=== PATIENT | female | born 1950 | race Caucasian/White ===

== ENCOUNTER 2018-11-14 09:22 | Inpatient (IN) | payer MEDICARE, BC ==
--- NOTE | 2018-11-06 12:42 | HP ---
HISTORY AND PHYSICAL: DATE OF OFFICE VISIT: 11/02/18 DATE OF SURGERY: 11/14/18 ATTENDING SURGEON: Karyn Harrell MD * (DICTATED BY DANDRE DEAN) PROCEDURE: Left total knee arthroplasty. CHIEF COMPLAINT: Left knee pain. HISTORY OF PRESENT ILLNESS: Ms. Clemens is a 67-year-old female with continued complaints of left knee pain. She has failed conservative treatment and elected to proceed with a left total knee arthroplasty. PAST MEDICAL HISTORY: Hypertension, diabetes, COPD, depression, hyperlipidemia , GERD, Richards esophagus, and history of breast cancer. PAST SURGICAL HISTORY: Lumpectomy, hysterectomy, appendectomy. CURRENT MEDICATIONS: 1. Tylenol as needed. 2. Motrin as needed. 3. Albuterol sulfate. 4. Metoprolol 50 mg daily. 5. Aspirin 81 mg. 6. Losartan potassium 50 mg daily. 7. Amlodipine 5 mg daily. 8. Mirapex 0.125 mg 1 to 2 tabs q.h.s. as needed. 9. Metformin 500 mg 2 tabs twice a day. 10. Wellbutrin 100 mg daily. 11. Pantoprazole 40 mg twice a day. 12. Citalopram 40 mg daily. 13. Glipizide 5 mg twice a day. 14. Klor-Con 10 mEq daily. 15. CoQ10 daily. 16. Pravastatin sodium 20 mg q.h.s. 17. Vitamin D3. 18. Vitamin B12. ALLERGIES: To ZOLOFT, CRESTOR, VYTORIN, and EFFEXOR. FAMILY HISTORY: Diabetes, cancer, coronary artery disease, and stroke. SOCIAL HISTORY: She is a 67-year-old female. She lives alone. She smokes about 4 cigarettes a day. Denies use of drugs or alcohol. REVIEW OF SYSTEMS: A complete 14-point review of systems was reviewed. The patient is positive for COPD, GERD, and diabetes. She denies history of DVT, PE , hepatitis, HIV, or anesthesia problems. PHYSICAL EXAMINATION GENERAL: She is well developed, well nourished, in no acute distress. VITAL SIGNS: She stands 64 inches tall, weighs 202 pounds. Blood pressure is 148/65, heart rate 84. HEENT: Normocephalic, atraumatic. NECK: Supple. No palpable lymph nodes. PULMONARY: The lungs are clear to auscultation bilaterally. CARDIO: Regular rate and rhythm. Strong S1, S2. ABDOMEN: Soft, nontender, nondistended. NEUROLOGICAL: She is alert and oriented x3. MUSCULOSKELETAL: Left lower extremity: The skin is intact. There are no open wounds or abrasions. There is a moderate joint effusion. Some tenderness along the medial joint line. There is a varus deformity of the knee. Range of motion is 10 to 120 degrees of flexion. She has a 2+ dorsalis pedis pulse, intact sensation. Her lower extremity muscle group strengths are intact at 5/5. ASSESSMENT AND PLAN: Ms. Clemens is a 67-year-old female with end-stage osteoarthritis of the left knee. She has failed conservative treatment and elected to proceed with a left total knee arthroplasty. The surgery is scheduled for 11/14/[address] Harrell discussed the risks and benefits of the surgery at today's visit and all of her questions were answered. She will follow up with Dr. Harrell 2 weeks after the surgery. DANDRE DEAN [id number]/[facility] #: [id number] GRAY
[~2018-11-14 09:22] MED LIST: Buffered Lidocaine 1% SYRIN* 1 ML/SYRINGE INTRADERM ONE; Dexamethasone IV* 4 MG/ML 1 ML (4 MG) ONE; Lactated Ringers 1000 ML Bag* 1,000 ML IV SCH; Lidocaine 2% PF * 5 ML VIAL ONE; Midazolam* 1 MG/ML 2 ML VIAL (2 MG) ONE; Propofol* 10 MG/ML 20 ML BTL ONE; ROPIVACAINE 5 MG/ML 30 ML BTL (0.5%) ONE; Rocuronium* 10 MG/ML VIAL ONE; Tranexamic Acid 1,000 MG in NS 0.9% 50 ML* (outpatient use) IV SCH; fentaNYL* 50 MCG/ML 2 ML VIAL (100 MCG VIAL) ONE
--- OUTSIDE RECORDS SUMMARY | 2018-11-14 09:28 | XMS REPORT | Continuity of Care Document ---
:1950 External Reference #:[id number] Author Name Valentine Begum Care Team Providers Name Role Phone Maricruz Burt FNP Primary Care Physician Unavailable Payers Type Date Identification Numbers Payment Provider Subscriber Policy Number: [id number] Medicare Rachel Clemens PayID: [id number] [address] [place] [address] Policy Number: [id number] [facility] Rachel Clemens PayID: [id number] [address] [place] [address] Expires: 2018 Policy Number: [id number] Medicare Rachel Clemens PayID: [id number] [address] [facility] [place] [address] Advance Directives Description No Information Available Problems Date Description Provider Status Onset: 10/01/2018 Localized, primary osteoarthritis Karyn Harrell M.D. 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 [employer] Tobacco Use Start: Unknown Light tobacco smoker (10 or fewer cigarettes/day) Tobacco Use Start: Unknown currently smokes 1/2 Pack Daily Smoking Status Reviewed: 11/02/18 currently smokes 1/2 Pack Daily ETOH Use Occasionally consumes alcohol Recreational Drug Use Denies Drug Use Tobacco Use Start: Unknown Light tobacco smoker (10 or fewer cigarettes/day) Exercise Type/Frequency Exercises sporadically Allergies, Adverse Reactions, Alerts Date Description Reaction Status Severity Comments 05/22/2018 Zoloft Active 05/22/2018 Rosuvastatin Calcium Active 05/22/2018 Vytorin Active 05/22/2018 Effexor Tachycardia Active Medications Medication Date Status Form Strength Qnty SIG Indications Ordering Provider Oxycodone-Acet 10/01/ Active Tablets 5-325mg 60tabs 1-2 tabs M25.562 Karyn aminophen 2017 by mouth Julio Cesar, every 12 M.D. hours as needed for pain Tylenol / Active Capsules 325mg 2 tablets Unknown 0000 every 4 hours as needed for pain Motrin Ib / Active Tablets 200mg 1-2 twice Unknown 0000 a day as needed Albuterol / Active Nebulizer (2.5mg/3ML 1 vial via Unknown Sulfate 0000 ) 0.083% nebulizer 4 times daily as needed Metoprolol / Active Tablets ER 50mg 1 by mouth Unknown Succinate ER 0000 24HR every day Aspirin Adult / Active Tablets DR 81mg 1 by mouth Unknown Low Dose 0000 every day Losartan / Active Tablets 50mg 1 by mouth Unknown Potassium 0000 every day Amlodipine / Active Tablets 5mg 1 by mouth Unknown Besylate 0000 every day Mirapex / Active Tablets 0.125mg take one Unknown 0000 or two tablet by mouth at bedtime as needed for restless legs Metformin HCL / Active Tablets 500mg 2 by mouth Unknown 0000 twice a day Wellbutrin SR / Active Tablets ER 100mg 1 by mouth Unknown 0000 12HR every morning for 1 week, then 1 in in the morning, 1 at noon (bid) Pantoprazole / Active Solution 40mg 1 by mouth Unknown Sodium 0000 Rec twice every day Citalopram / Active Tablets 40mg 1 by mouth Unknown Hydrobromide 0000 every day Glipizide XL / Active Tablets ER 5mg 1 tab by Javed, 0000 24HR mouth Maricruz twice Mary daily MICHAEL Klor-Con M10 / Active Tablets ER 10Meq 1 tab by Javed, 0000 mouth Maricruz daily MICHAEL Hernandez Coq10 / Active Capsules 200mg 1 by mouth Unknown 0000 every day Pravastatin 00/00/ Active Tablets 20mg 1 tablet Unknown Sodium 0000 by mouth once daily at bedtime Vitamin D3 / Active Capsules 2000Unit 1 by mouth Unknown Super Strength 0000 every day Potassium / Hx Tablets ER 10Meq 1 by mouth Unknown Chloride Helene 0000 - every day ER 2017 Atorvastatin / Hx Tablets 20mg take 1 Unknown Calcium 0000 - tablet at 05/06/ bedtime 2018 Glucotrol XL / Hx Tablets ER 10mg take two Unknown 0000 - 24HR tablets by 2018 every day in the morning Fish Oil / Hx Capsules DR 1000mg 1 by mouth Unknown 0000 - twice a 2017 Gemfibrozil / Hx Tablets 600mg 1 by mouth Unknown 0000 - twice a 2017 Medications Administered in Office Medication Date Status Form Strength Qnty SIG Indications Ordering Provider Celestone 3 mg Administered Injection Julio Cesar M and 3mg 018 MD Jose Celestone 3 mg Administered Injection Julio Cesar M and 3mg 018 MD Jose Celestone 3 mg Administered Injection Julio Cesar M and 3mg 018 MD Jose Immunizations Description No Information Available Vital Signs Date Vital Result Comment 11/02/2018 1:12pm Height 64 inches 5'4" Weight 200.00 lb Heart Rate 84 /min BP Systolic 148 mmHg BP Diastolic 65 mmHg Respiratory Rate 17 /min Pain Level 5 BMI (Body Mass Index) 34.3 kg/m2 10/01/2018 3:40pm Height 64 inches 5'4" Weight 204.00 lb Heart Rate 96 /min BP Systolic 146 mmHg BP Diastolic 74 mmHg BMI (Body Mass Index) 35.0 kg/m2 09/20/2018 10:04am Height 64 inches 5'4" Weight 190.00 lb BP Systolic Sitting 126 mmHg BP Diastolic Sitting 68 mmHg Respiratory Rate 16 /min Pain Level 6 BMI (Body Mass Index) 32.6 kg/m2 07/04/2018 10:00am Height 64 inches 5'4" Weight 190.00 lb BP Systolic Sitting 148 mmHg BP Diastolic Sitting 82 mmHg Respiratory Rate 16 /min Pain Level 8 BMI (Body Mass Index) 32.6 kg/m2 05/22/2018 2:06pm Height 64 inches 5'4" Weight 190.00 lb Heart Rate 90 /min BP Systolic Sitting 132 mmHg BP Diastolic Sitting 80 mmHg Respiratory Rate 20 /min Pain Level 7 BMI (Body Mass Index) 32.6 kg/m2 Results Description No Information Available Procedures Date Code Description Status 07/04/2018 15425 Rad Exam; Both Knees, Standing Ap Completed 07/04/2018 Inject/Drain Joint/Bursa Major W/O US Completed 05/22/2018 Inject/Drain Joint/Bursa Major W/O US Completed Encounters Type Date Location Provider Dx Diagnosis Office Visit 10/01/2018 Orthopedic Karyn Harrell, M25.562 Pain in left knee 3:00[facility] M25.462 Effusion, left knee M17.12 Unilateral primary osteoarthritis, left knee Office Visit 09/20/2018 10:00a Randall Valle M17.0 Bilateral [facility] MD osteoarthritis of [facility] [place] knee Office Visit 07/04/2018 9:45a Randall Valle M17.0 [facility] MD osteoarthritis of [place] knee M17.12 Unilateral primary osteoarthritis, left knee Office Visit 05/22/2018 Randall Valle M17.12 Unilateral primary 2:00p [facility] MD osteoarthritis, left [place] knee Plan of Treatment Future Appointment(s):11/26/2018 2:45 pm - Karyn Harrell M.D[facility] at [facility]11/14/2018 11:00 am - DANDRE Nova [facility]11/14/2018 11:00 am - Karyn Harrell M.D. at [facility]11/02/2018 - Karyn Harrell M.D.M25.562 Pain in left kneeFollow up:Follow up: 2 weeks after ljqgrsdZ43.462 Effusion, left kneeM17.12 Unilateral primary osteoarthritis, left knee
[2018-11-14] MEDS ORDERED: ceFAZolin 2 GM PREMIX in ORs 2 GM/50 ML BAG IVPB ONE (09:44)
[2018-11-14] MEDS ORDERED: ROPIVACAINE 5 MG/ML 30 ML BTL (0.5%) ONE (10:21)
[2018-11-14] MEDS ORDERED: KETAMINE HCL* 50 MG/ML 10 ML VIAL ONE (11:24)
[2018-11-14] MEDS ORDERED: Naloxone* 0.4 MG/ML 1 ML VIAL IV PRN (12:17)
[2018-11-14] MEDS ORDERED: Acetaminophen IV 1GM/100ML * 1,000 MG/100 ML VIAL IVPB ONE (12:17)
[2018-11-14] MEDS ORDERED: DiMENhydriNATE IV* 50 MG/ML VIAL IV PUSH PRN (12:17)
[2018-11-14] MEDS ORDERED: Metoclopramide IV* 5 MG/ML 2 ML VIAL ONE (13:01)
[2018-11-14] MEDS ORDERED: Ketorolac INJ* 30 MG/ML 1 ML VIAL ONE (13:01)
[2018-11-14] MEDS ORDERED: Glycopyrrolate IV* 0.2 MG/ML 1 ML VIAL ONE (13:01)
[2018-11-14] MEDS ORDERED: Neostigmine Methylsulfate* 1 MG/ML 10 ML VIAL (1 mg/ml) ONE (13:01)
[2018-11-14] MEDS ORDERED: Ondansetron INJ* 2 MG/ML VIAL ONE (13:01)
[2018-11-14] MEDS ORDERED: Magnesium Hydroxide LIQ* 30 ML UDC PO PRN (13:26)
[2018-11-14] MEDS ORDERED: Ondansetron TAB* 4 MG PO PRN (13:26)
[2018-11-14] MEDS ORDERED: diPHENhydraMINE IV* 50 MG/ML 1 ml VIAL (BENADRYL) IV PRN (13:26)
[2018-11-14] MEDS ORDERED: oxyCODONE/Acetamin 5/325 MG* TAB PO PRN (13:26)
[2018-11-14] MEDS ORDERED: Polyethylene Glycol 3350* 17 GM PACKET PO PRN (13:26)
[2018-11-14] MEDS ORDERED: Bisacodyl SUPP* 10 MG SUPP PR PRN (13:26)
[2018-11-14] MEDS ORDERED: Cyclobenzaprine TAB* 10 MG PO PRN (13:26)
[2018-11-14] MEDS ORDERED: Ondansetron INJ* 2 MG/ML VIAL IV PRN (13:26)
[2018-11-14] MEDS ORDERED: Morphine VIAL* 4 MG/ML VIAL (1 ml vial) IV PRN (13:26)
[2018-11-14] MEDS ORDERED: Albuterol 0.5% CONC NEB.SOL* 5 MG/ML 20 ml BOT INH PRN (13:32)
[2018-11-14] MEDS ORDERED: Levalbuterol 0.63MG/3ML NEB* UNIT OF USE INH ONE (13:39)
[2018-11-14] MEDS ORDERED: EPINEPHrine SYR 0.1MG/ML* SYRINGE ONE (13:59)
[2018-11-14] MEDS ORDERED: Albuterol/Ipratropium NEB.SOL* Albuterol 2.5 MG/Ipratropium 0.5 MG 3 ML INH ONE (14:00)
[2018-11-14] MEDS ORDERED: Acetaminophen TAB* 325 MG PO SCH (14:00)
[2018-11-14] MEDS ORDERED: Acetaminophen IV 1GM/100ML * 100 ML ONE (14:24)
[2018-11-14] MEDS ORDERED: Dextrose 50% Syringe 50 ML* 25 GM/50 ML SYRINGE IV PUSH PRN (14:43)
[2018-11-14] MEDS: HYDROmorphone INJ1* 1 MG/ML SYRINGE IV PRN ×3 (15:02→16:18)
[2018-11-14] MEDS ORDERED: HYDROmorphone INJ1* 1 MG/ML SYRINGE ONE (15:02)
[2018-11-14] MEDS: Lactated Ringers 1000 ML Bag* 1,000 ML IV SCH (17:10)
[2018-11-14] MEDS ORDERED: oxyCODONE/Acetamin 5/325 MG* TAB ONE (17:32)
[2018-11-14] MEDS: oxyCODONE/Acetamin 5/325 MG* TAB PO PRN ×2 (17:33→21:32)
[2018-11-14] MEDS: Insulin LISPRO* 1 UNITS UNIT SUBCUT SCH (17:46)
[2018-11-14] MEDS ORDERED: Warfarin TAB(*) 6 MG PO ONE (18:00)
--- NOTE | 2018-11-14 18:42 | CONS ---
CC: Mary Burt NP; Dr. Harrell; Dr. Salinas * CONSULTATION NOTE: DATE OF CONSULT: 11/14/18 PRIMARY CARE PROVIDER: Mary Burt NP REQUESTING PHYSICIAN IN CONSULT: Dr. Karyn Harrell. MY ATTENDING PHYSICIAN WHILE IN THE HOSPITAL: Dr. Mahi Freeman (report dictated by Brien Tracy NP). REASON FOR MEDICAL CONSULTATION: Evaluation and medical management of comorbid medical conditions. HISTORY OF PRESENT ILLNESS: Ms. Clemens is a 67-year-old female patient who carries a history of hypertension, diabetes, COPD, depression, hyperlipidemia, GERD, Richards's esophagus, breast cancer, history of migraines and arthritis, who presented originally to Dr. Harrell's service in the outpatient setting with complaints of left knee pain. She had failed conservative therapy and it was felt that she would benefit from a total knee replacement which she underwent today. She carries a significant past medical history and we were asked to evaluate in consult. She was evaluated in the PACU. She is quite drowsy, but she will awaken. She says she is not having any chest pain. She denies any shortness of breath. She says she does have some pain in her left knee. She states she feels very tired. She denies having any lightheadedness and denies having any recent cough or fevers. She states she does not feel nauseated. She states she feels thirsty. Because of her medical complexity, we were asked to evaluate in consult. PAST MEDICAL HISTORY: Significant for: 1. Hypertension. 2. Diabetes. 3. COPD. 4. Depression. 5. Hyperlipidemia. 6. GERD. 7. Richards's esophagus. 8. Breast cancer. 9. Migraines. 10. Arthritis. PAST SURGICAL HISTORY: 1. She has had a hysterectomy 2. Appendectomy. 3. Lumpectomy. 4. She is status post left total knee arthroplasty done today. HOME MEDICATIONS: Include: 1. Glipizide 5 mg p.o. b.i.d. 2. Wellbutrin 300 mg 1 tablet p.o. q.a.m. 3. Co-enzyme Q10 of 200 mg p.o. at bedtime. 4. Pravachol 20 mg at bedtime. 5. Mirapex 0.125 mg p.o. at bedtime. 6. Potassium chloride 1 tablet p.o. daily. 7. Protonix 40 mg p.o. b.i.d. 8. Toprol-XL 1 tablet p.o. in the morning. 9. Metformin 500 mg p.o. b.i.d. 10. Cozaar 1 tablet at bedtime. 11. Motrin 1 to 2 tablets p.o. b.i.d. as needed. 12. Celexa 40 mg daily. 13. Vitamin D3 of 2000 units p.o. at bedtime. 14. Aspirin 81 mg daily. 15. Amlodipine 5 mg daily. 16. Albuterol 1 neb inhaled 4 times a day as needed. 17. Tylenol 2 tablets every 4 hours as needed. ALLERGIES TO MEDICATIONS: Include EFFEXOR, STATIN, ZOLOFT. FAMILY HISTORY: Both her parents had history of GA. SOCIAL HISTORY: She is a half a pack a day smoker. She rarely drinks alcohol. Surrogate decision maker is her daughter, . REVIEW OF SYSTEMS: There is no documented fever. She denied having any significant weight change. There is no double vision. She denies having any ear discharge. There was no rhinorrhea. There was no sore throat. No thyroid enlargement. She denies having any chest pain. There was no orthopnea. There was no nocturnal dyspnea. She denies having any abdominal pain. There was no nausea, no vomiting. No dysuria, no frequency, no seizure. There was no loss of consciousness. No pruritus. Review of 14 systems was completed, all others negative. PHYSICAL EXAMINATION: General: At this time, Ms. Clemens is a 67-year-old female patient. She is morbidly obese. She is sitting in the PACU bed. She does not appear to be in any acute distress. She is rather drowsy. Vital Signs : Blood pressure 132/93, pulse 88, respirations were 12, O2 sat 93% on 8 L, temperature 97.2. HEENT: Head atraumatic, normocephalic. Eyes: EOMs intact. Sclerae anicteric. Pupils reactive to light. Neck: Supple. Throat: Oral mucosa appears to be dry. No oropharyngeal erythema. Lungs: Clear to auscultation bilaterally. There were no wheezes, rales or rhonchi heard. She had diminished breath sounds at the bases. Equal diaphragmatic expansion. Heart: Sounds S1, S2. Regular rate and rhythm. No murmurs, rubs or gallops. Abdomen: Soft, flat, nontender. Bowel sounds hypoactive. Extremities: Pulses 2+ throughout. Distal CSM checks are intact in the left lower extremity. She is moving the upper extremities with 5/5 strength. She has limited range of motion in the left lower extremity, this is the operative leg. She has 5/5 strength in the right lower extremity. Neurologic: She is quite drowsy, but she will awake and she knows she is in the hospital. She knows her name. She knows she had surgery today and she knows the month. Her speech again is difficult to interpret because she is again very drowsy during the exam , but it does sound to be clear. She had a low tone. She had no facial drooping. Again, EOMs were intact. Pupils reactive to light. No gross focal deficits were noted. Skin: Intact with the exception she has an incision to the left knee, which is covered with an Vikas dressing, clean, dry and intact. LABORATORY DATA/DIAGNOSTIC STUDIES: Preop labs: WBC 7.9, RBC of 4.41, hemoglobin 12.9, hematocrit 39, platelet count 321,000. INR 0.97. PTT 30.8. Her sodium was 135, potassium 4.4, chloride 101, bicarb 25, BUN 15, creatinine 0.6, A1c was 7.9, total bili 0.3. She had a preop urine which was obtained, was negative. She had a preoperative EKG, showed a normal sinus rhythm, rate of 74, no ST elevation or T-wave inversions noted. There was a chest x-ray obtained today, which revealed findings suggestive of COPD, no evidence of acute findings. Old medical records reviewed. ASSESSMENT AND PLAN: Ms. Clemens is a 67-year-old female patient with a complex medical history coming into the surgical services today for an elective total knee replacement. We were asked to evaluate in consult. My recommendations at this point are: 1. Status post left total knee replacement. I will defer the management to Dr. Harrell and her team, but I would recommend getting her back on her aspirin when it is stable per orthopedic services. 2. Chronic obstructive pulmonary disease. Continue with aggressive pulmonary toileting and p.r.n. nebs. We will need to be on the watch out for bronchospasm. She appeared to be clear. She did require Xopenex and DuoNeb immediately in the PACU, but she seems to be improving. We will continue to monitor. 3. Hypertension. Continue meds as prescribed with the exception I held the Cozaar for tonight. We can restart it tomorrow, but I discontinued it. We will just need to evaluate her blood pressure 4. Diabetes. I put her on a lispro sliding scale. 5. Depression. Continue with supportive care. 6. Hyperlipidemia. Continue Pravachol. 7. History of Richards's esophagus and history of gastroesophageal reflux disease. Continue PPI therapy. 8. History of breast cancer. Follow up with primary care physician. 9. Migraines. Not an active issue currently. We will continue to monitor. 10. Arthritis. Continue with p.r.n. pain control and continue to follow with the PCP. Appears to be stable. 11. DVT prophylaxis. Defer to the primary team. 12. Code status is full code. 13. Fluids, electrolytes and nutrition. I would recommend a clear liquid diet. TIME SPENT: Time spent on the consult was 60 minutes, greater than half of the time was spent [id number] with the patient obtaining my history and physical, other half of the time was spent going over the plan of care with the patient and implementing plan of care. I did discuss the plan of care with my attending, Dr. Freeman, she is in agreement. BRIEN TRACY NP [id number]/[facility] #: [id number] GRAY
[2018-11-14] MEDS: ceFAZolin 1 GM ADVAN(*) 1 GM in NS 0.9% 50 ML* 50 ML IVPB SCH (19:10)
[2018-11-14] MEDS: Docusate CAP* 100 MG PO SCH (20:23)
[2018-11-14] MEDS: Pantoprazole TAB * 40 MG TAB PO SCH (20:23)
[2018-11-14] MEDS: traMADol TAB* 50 MG PO PRN (20:23)
[2018-11-14] MEDS: Magnesium Hydroxide LIQ* 30 ML UDC PO SCH (20:24)
[2018-11-14] MEDS: Pramipexole TAB* 0.125 MG PO SCH (20:24)
[2018-11-14] MEDS: CMCS:Pravastatin (NF) 20 MG TAB PO SCH (20:24)
[2018-11-14] MEDS ORDERED: metFORMIN* 500 MG TAB PO SCH (21:00)
[2018-11-14] MEDS ORDERED: LOSARTAN POTASSIUM PO SCH (21:00)
[2018-11-14] MEDS ORDERED: Pravastatin (NF) 20 MG TAB PO SCH ×2 (21:00)
[2018-11-14] MEDS ORDERED: glipiZIDE TAB.XL* 5 MG PO SCH (21:00)
[2018-11-14] MEDS: Acetaminophen TAB* 325 MG PO SCH (21:03)
--- NOTE | 2018-11-14 21:37 | OP ---
DATE OF OPERATION: 11/14/18 - ROOM #347 DATE OF : 52 SURGEON: Karyn Harrell MD WET FINISHER WOOL: DANDRE Blair. Ms. Villa did help throughout the procedure with preparation of the leg, wound retraction, manipulation of the knee, and wound closure. ANESTHESIOLOGIST: Dr. Griffiths. ANESTHESIA: General. PRE-OP DIAGNOSIS: Severe end-stage degenerative osteoarthritis of the left knee joint. POST-OP DIAGNOSIS: Severe end-stage degenerative osteoarthritis of the left knee joint. OPERATIVE PROCEDURE: Left total knee arthroplasty. TOURNIQUET TIME: 41 minutes. COMPLICATIONS: None. ESTIMATED BLOOD LOSS: 150 cc. SPECIMENS: Bone and cartilage from the left knee joint sent to Pathology. HARDWARE USED: This is cemented Fr[employer] total knee arthroplasty hardware. Two packages of Simplex bone cement were used. For the femur, a left 5 Narrow Oxinium Legion posterior stabilized femoral component. For the tibia, a size 3 left tibial baseplate Wilma II. For the insert, a 9-mm posterior stabilized articular insert size 3/4 and for the patella, a 32 mm 3-peg all poly patella with 7.5 thickness. BRIEF HISTORY/INDICATIONS: Ms. Clemens has suffered for years with left knee pain. Radiographs showed [id number] arthritis. She failed conservative treatment with anti-inflammatories, pain medications, physical therapy, and intraarticular injections. Due to continued pain and decreased quality of life , she elected to undergo left total knee arthroplasty. Informed consent was obtained from the patient. She understood the risks of the surgery included but were not limited to bleeding, infection, damage to nearby structures, continued pain, need for further surgery, intraoperative fracture, nerve palsy, hardware failure or loosening, knee stiffness, loss of motion, stroke, heart attack, blood clot, and . She wished to proceed. INTRAOPERATIVE FINDINGS: Intraoperatively, the patient was noted to have severe end-stage arthritis with complete loss of cartilage in the medial and patellofemoral compartments. She had extensive osteophyte formation. DESCRIPTION OF PROCEDURE: Ms. Clemens was identified in the preanesthesia unit. Her left lower extremity was marked as the correct operative site. Informed consent was signed and placed in the chart. The patient was taken to the operating room and placed under anesthesia without difficulty. A Mckeon catheter was placed. Tourniquet was placed on the left thigh. Left lower extremity was prepped and draped in the usual sterile fashion. Preop time-out was made to correctly identify the patient's side and site. Appropriate perioperative antibiotics were given within 1 hour of incision. Tourniquet was inflated. A midline incision was made with a 10 blade and carried down to the extensor mechanism. New 10 blade was used to make a standard medial parapatellar arthrotomy. Electrocautery was used to subperiosteally elevate soft tissue off the superomedial tibia to the midsagittal plane. The knee was flexed up. The anterior horn of the lateral meniscus and the ACL were sharply released. A drill was used to enter the distal femur. Intramedullary distal femoral cutting guide was pinned on the distal femur. Oscillating saw was used to make the distal femoral cut. The external rotation guide was pinned on the distal femur. Distal femur was sized to a size 5. Size 5 multi-cutting jig was pinned on the distal femur. Oscillating saw was used to make the appropriate 4 chamfer cuts. The PCL was completely released. Extramedullary tibial cutting guide was pinned on the proximal tibia. Oscillating saw was used to make the proximal tibial cut perpendicular to the mechanical axis of the tibia. The bone was carefully removed. The knee was brought out into full extension. Spacer block had excellent fit with the knee in full extension. Medial and lateral ligaments were well balanced. Flexion and extension gaps were well balanced. The knee was flexed up. Lamina sleeve fixer was placed both medially and laterally. Any remaining meniscus was carefully removed using electrocautery. Curved osteotome was used to remove any osteophytes. Tibial tray and drop jammie were placed and once again confirmed a satisfactory tibial cut. A left size 5 Narrow femoral trial was impacted on to the distal femur and had excellent fit and stability. The box for the posterior stabilized implant was prepared using a reamer and box cut osteotome. Size 3 tibial tray trial with a 9 mm insert trial was placed and the knee was taken through a range of motion. The knee had full extension to 130 degrees of flexion. There was satisfactory patellofemoral tracking. The patella was everted. A 7 mm of patellar bone and cartilage was carefully removed using an oscillating saw. Patella was sized to a size 32. Three peg holes were drilled through the size 32 guide. The 32 trial patella with 7.5 thickness was placed and the knee was taken through a range of motion. There was satisfactory patellofemoral tracking. All trials were carefully removed. Tibia was subluxed anteriorly and sized to a size 3. Proximal tibia was prepared using a size 3 keel punch. All bony cut surfaces were copiously irrigated and dried. Final implants were cemented into place starting with the tibia, followed by the femur, and last the patella. A 9 mm insert trial was placed and the knee was brought out into full extension. Tourniquet was turned down at 41 minutes. Electro-cautery was used to obtain meticulous hemostasis. The knee was copiously irrigated with sterile saline. Once the cement had fully cured, the insert trial was removed. Any extra cement was removed from around the capsule and hardware. Final insert chosen was a 9 mm posterior stabilized articular insert size 3/4. This was locked in position on the tibial tray. Stability of the insert was checked and rechecked and noted to be stable. The knee was copiously irrigated with sterile saline. The extensor mechanism was closed using interrupted #1 Vicryls. The rest of the incision was closed in a layered fashion using 0 and 2-0 Vicryls. Skin was closed using running 3- 0 nylon suture. Sterile Xeroform, 4x4s, and Webril were used to cover the incision. Vikas wrap and cold pack were placed over this. The patient's anesthesia was reversed without difficulty. She was taken to the PACU in stable condition. Intended weightbearing will be weightbearing as tolerated. Intended DVT prophylaxis will be Eliquis. [id number]/[facility] #: [id number] GRAY
[2018-11-15] MEDS: oxyCODONE/Acetamin 5/325 MG* TAB PO PRN ×4 (01:43→21:11)
[2018-11-15] MEDS: ceFAZolin 1 GM ADVAN(*) 1 GM in NS 0.9% 50 ML* 50 ML IVPB SCH ×2 (03:25→12:16)
[2018-11-15] MEDS: Lactated Ringers 1000 ML Bag* 1,000 ML IV SCH (03:25)
[2018-11-15] MEDS: Acetaminophen TAB* 325 MG PO SCH ×3 (05:21→21:57)
[2018-11-15] MEDS: traMADol TAB* 50 MG PO PRN (05:50)
[2018-11-15 05:59] LABS: Hematocrit 33 % (35-47); Hemoglobin 11.1 g/dl (12.0-16.0); Mean Platelet Volume 8.5 fL (7.4-10.4); Platelet Count 255 10^3/ul (150-450)
[2018-11-15 06:09] LABS: INR 0.99 (0.77-1.02)
[2018-11-15 06:20] LABS: BUN/Creatinine Ratio 19.6 (8-20); Calcium 8.7 mg/dL (8.6-10.3); EGFR African American 73.9 (>60); EGFR Non-African American 61.1 (>60); Potassium 4.5 mmol/L (3.5-5.0)
[2018-11-15] MEDS: Albuterol 2.5 MG/3 ML NEB.SOL* (0.083%) INH PRN ×2 (08:00→14:40)
[2018-11-15] MEDS: oxyCODONE TAB* 5 MG TAB PO PRN ×2 (08:16→14:39)
[2018-11-15] MEDS: buPROPion SR TAB.SR* 100 MG PO SCH (08:17)
[2018-11-15] MEDS: Metoprolol Succinate XL TAB* 50 MG PO SCH (08:17)
[2018-11-15] MEDS: Magnesium Hydroxide LIQ* 30 ML UDC PO SCH ×2 (08:17→21:11)
[2018-11-15] MEDS: Citalopram TAB* 40 MG PO SCH (08:18)
[2018-11-15] MEDS: Docusate CAP* 100 MG PO SCH ×2 (08:18→21:10)
[2018-11-15] MEDS: amLODIPine TAB* 5 MG PO SCH (08:18)
[2018-11-15] MEDS: Potassium Chlor TAB* 10 MEQ TAB.ER PO SCH (08:18)
[2018-11-15] MEDS: Pantoprazole TAB * 40 MG TAB PO SCH ×2 (08:18→21:11)
[2018-11-15] MEDS: Insulin LISPRO* 1 UNITS UNIT SUBCUT SCH ×3 (08:20→18:18)
[2018-11-15] MEDS ORDERED: Metoprolol Succinate XL TAB* 50 MG PO SCH (09:00)
[2018-11-15] MEDS ORDERED: amLODIPine TAB* 5 MG PO SCH (09:00)
[2018-11-15] MEDS ORDERED: diPHENhydraMINE PO* 25 MG ONE (09:24)
[2018-11-15] MEDS ORDERED: diPHENhydraMINE PO* 25 MG PO PRN (09:26)
[2018-11-15] MEDS: Apixaban* 2.5 MG TAB PO SCH ×2 (09:26→21:10)
--- NOTE | 2018-11-15 09:51 | PN ---
Progress Note - Progress Note Date of Service: 11/15/18 SOAP: Subjective: [] Patient was seen and examined at bedside. She feels well without CP, SOB, dizziness, nausea. Knee pain is rated 6/10 just after physical therapy, improving with rest. No history of DVT or PE, does have a history of COPD without oxygen use at home. Objective: [] General: Well appearing, NAD LLE: Left knee dressing CDi, cryo cuff in use, thigh is soft, df/pf intact, sensation intact to light touch distally, DP2+ Calves supple and nontender without erythema, edema or palpable cords Assessment: [] POD 1 SP left total knee arthoplasty Plan: []WBAT PT/OT eliquis 2.5 mg po BID x 30 days Wean from O2 as able Likely DC tomorrow morning Vital Signs Temp 98.7 F 11/15/18 07:27 Pulse 83 11/15/18 08:00 Resp 18 11/15/18 09:26 BP 139/61 11/15/18 07:27 Pulse Ox 94 11/15/18 08:00 Intake & Output 11/14/18 11/15/18 11/15/18 18:59 06:59 18:59 Intake Total 2250 1618 480 Output Total 475 1075 0 Balance 1775 543 480 Weight 201 lb 12.8 oz Intake: IV Fluids 2250 980 LR 2200 980 NS 50ML, Cefazolin 2G 50 IVPB 58 ABX - CEFAZOLIN 58 Oral 580 480 Output: Urine 0 Mckeon 275 1075 Estimated Blood Loss 200 Other: # Bowel Movements 0 Laboratory Last Values Hgb 11.1 g/dl (12.0-16.0) L 11/15/18 05:20 Hct 33 % (35-47) L 11/15/18 05:20 Plt Count 255 10^3/ul (150-450) 11/15/18 05:20 MPV 8.5 fL (7.4-10.4) 11/15/18 05:20 INR (Anticoag Therapy) 0.99 (0.77-1.02) 11/15/18 05:20 Sodium 132 mmol/L (135-145) L 11/15/18 05:20 Potassium 4.5 mmol/L (3.5-5.0) 11/15/18 05:20 Chloride 101 mmol/L (101-111) 11/15/18 05:20 Carbon Dioxide 24 mmol/L (22-32) 11/15/18 05:20 Anion Gap 7 mmol/L (2-11) 11/15/18 05:20 BUN 18 mg/dL (6-24) 11/15/18 05:20 Creatinine 0.92 mg/dL (0.51-0.95) 11/15/18 05:20 Est GFR ( Amer) 73.9 (>60) 11/15/18 05:20 Est GFR (Non-Af Amer) 61.1 (>60) 11/15/18 05:20 BUN/Creatinine Ratio 19.6 (8-20) 11/15/18 05:20 Glucose 203 mg/dL (70-100) H 11/15/18 05:20 POC Glucose (mg/dL) 193 mg/dL (70-100) H 11/15/18 07:24 Calcium 8.7 mg/dL (8.6-10.3) 11/15/18 05:20
[2018-11-15] MEDS ORDERED: Enoxaparin(*) 40 MG/0.4 ML SYR SUBCUT SCH (12:00)
--- NOTE | 2018-11-15 14:15 | PN ---
Subjective Date of Service: 11/15/18 Interval History: Resting in bed on assessment. Reports increase in pain in left knee because she just returned from PT. Otherwise pain is well controlled. It is noted that patient is on supplemental O2 and she reports she does not wear /need supplemental O2 at home. In addition she reports she feels "wheezy". She explains that when she feels wheezy at home she will take her nebulizer for 2 to 3 days and will improve. Denies sob with exertion, rest, or when lying flat. Denies cp, palpitations, nausea, vomiting, diarrhea, fever, chills Objective Active Medications: Acetaminophen (Tylenol Tab*) 975 mg PO Q8HR [facility] Last Admin: 11/15/18 12:44 Dose: Not Given Albuterol (Ventolin 2.5 Mg/3 Ml Neb.Davina*) 2.5 mg INH Q2H PRN PRN Reason: SOB/WHEEZING Last Admin: 11/15/18 08:00 Dose: 2.5 mg Amlodipine Besylate (Norvasc Tab*) 5 mg PO QAM [facility] Last Admin: 11/15/18 08:18 Dose: 5 mg Apixaban (Eliquis*) 2.5 mg PO BID [facility] Last Admin: 11/15/18 09:26 Dose: 2.5 mg Bisacodyl (Dulcolax Supp*) 10 mg NC DAILY PRN PRN Reason: constipation Bupropion HCl (Wellbutrin Sr Tab*) 100 mg PO QAM [facility] Last Admin: 11/15/18 08:17 Dose: 100 mg Citalopram Hydrobromide (Celexa Tab*) 40 mg PO QAM [facility] Last Admin: 11/15/18 08:18 Dose: 40 mg Cyclobenzaprine HCl (Flexeril Tab*) 10 mg PO TID PRN PRN Reason: SPASMS Dextrose (D50w Syringe 50 Ml*) 12.5 gm IV PUSH .FOR FS < 60 - SS PRN PRN Reason: FS < 60 Diphenhydramine HCl (Benadryl Iv*) 12.5 mg IV Q6H PRN PRN Reason: PRURITIS Diphenhydramine HCl (Benadryl Po*) 25 mg PO Q6H PRN PRN Reason: ITCHINESS Docusate Sodium (Colace Cap*) 100 mg PO BID [facility] Last Admin: 11/15/18 08:18 Dose: 100 mg Lactated Ringer's (Lactated Ringers 1000 Ml Bag*) 1,000 mls @ 100 mls/hr IV PER RATE [facility] Last Admin: 11/15/18 03:25 Dose: 100 mls/hr Insulin Human Lispro (Humalog*) 0 units SUBCUT AC [facility]; Protocol Last Admin: 11/15/18 12:16 Dose: 3 units Lactulose (Lactulose*) 30 ml PO Q6H PRN PRN Reason: constipation Magnesium Hydroxide (Milk Of Magnesia Liq*) 30 ml PO BID [facility] Last Admin: 11/15/18 08:17 Dose: 30 ml Magnesium Hydroxide (Milk Of Magnesia Liq*) 30 ml PO Q6H PRN PRN Reason: constipation Metoprolol Succinate (Toprol Xl Tab*) 50 mg PO QAM [facility] Last Admin: 11/15/18 08:17 Dose: 50 mg Morphine Sulfate (Morphine Vial*) 2 mg IV Q2H PRN PRN Reason: PAIN Ondansetron HCl (Zofran Inj*) 4 mg IV Q6H PRN PRN Reason: nausea Ondansetron HCl (Zofran Tab*) 4 mg PO Q6H PRN PRN Reason: NAUSEA Oxycodone HCl (Roxycodone Tab*) 10 mg PO Q4H PRN PRN Reason: SEVERE PAIN Last Admin: 11/15/18 08:16 Dose: 10 mg Oxycodone/Acetaminophen (Percocet 5/325 Tab*) 1 tab PO Q4H PRN PRN Reason: PAIN Oxycodone/Acetaminophen (Percocet 5/325 Tab*) 2 tab PO Q4H PRN PRN Reason: PAIN Last Admin: 11/15/18 10:48 Dose: 2 tab Pantoprazole Sodium (Protonix Tab*) 40 mg PO BID [facility] Last Admin: 11/15/18 08:18 Dose: 40 mg Polyethylene Glycol/Electrolytes (Miralax*) 17 gm PO DAILY PRN PRN Reason: Constipation Potassium Chloride (Klor Con Er Tab*) 10 meq PO QAM [facility] Last Admin: 11/15/18 08:18 Dose: 10 meq Pramipexole Dihydrochloride (Mirapex Tab*) 0.125 mg PO BEDTIME [facility] Last Admin: 11/14/18 20:24 Dose: 0.125 mg Pravastatin Sodium (Pravachol (Nf)) 20 mg PO BEDTIME [facility]; Protocol Last Admin: 11/14/18 20:24 Dose: 20 mg Tramadol HCl (Ultram*) 50 mg PO Q6H PRN PRN Reason: PAIN Last Admin: 11/15/18 05:50 Dose: 50 mg Vital Signs - 8 hr 11/15/18 11/15/18 11/15/18 07:27 07:47 08:00 Temperature 98.7 F Pulse Rate 83 83 Respiratory 16 18 18 Rate Blood Pressure 139/61 (mmHg) O2 Sat by Pulse 90 90 94 Oximetry 11/15/18 11/15/18 11/15/18 08:16 09:26 10:48 Temperature Pulse Rate Respiratory 18 18 18 Rate Blood Pressure (mmHg) O2 Sat by Pulse Oximetry 11/15/18 11/15/18 11/15/18 11:42 12:13 12:34 Temperature 99.0 F Pulse Rate 86 Respiratory 16 18 18 Rate Blood Pressure 154/76 (mmHg) O2 Sat by Pulse 94 Oximetry Oxygen Devices in Use Now: Nasal Cannula Appearance: Comfortable, NAD Eyes: No Scleral Icterus Ears/Nose/Mouth/Throat: Clear Oropharnyx, Mucous Membranes Moist Neck: NL Appearance and Movements; NL JVP Respiratory: Symmetrical Chest Expansion and Respiratory Effort - Sporadic wheeze heard throughout. Mild decrease in aeration. Cardiovascular: NL Sounds; No Murmurs; No JVD, RRR, No Edema Abdominal: NL Sounds; No Tenderness; No Distention Lymphatic: No Cervical Adenopathy Extremities: No Edema, No Clubbing, Cyanosis Skin: No Rash or Ulcers Neurological: Alert and Oriented x 3 Nutrition: Taking PO's Result Diagrams: 11/15/18 05:20 11/15/18 05:20 Additional Lab and Data: Laboratory Results - last 24 hr 11/14/18 11/15/18 11/15/18 17:24 05:20 05:20 Hgb 11.1 L Hct 33 L Plt Count 255 MPV 8.5 INR (Anticoag Therapy) 0.99 Sodium Potassium Chloride Carbon Dioxide Anion Gap BUN Creatinine Est GFR ( Amer) Est GFR (Non-Af Amer) BUN/Creatinine Ratio Glucose POC Glucose (mg/dL) 241 H Calcium 11/15/18 11/15/18 11/15/18 05:20 07:24 11:53 Hgb Hct Plt Count MPV INR (Anticoag Therapy) Sodium 132 L Potassium 4.5 Chloride 101 Carbon Dioxide 24 Anion Gap 7 BUN 18 Creatinine 0.92 Est GFR ( Amer) 73.9 Est GFR (Non-Af Amer) 61.1 BUN/Creatinine Ratio 19.6 Glucose 203 H POC Glucose (mg/dL) 193 H 196 H Calcium 8.7 11/15/18 17:04 Hgb Hct Plt Count MPV INR (Anticoag Therapy) Sodium Potassium Chloride Carbon Dioxide Anion Gap BUN Creatinine Est GFR ( Amer) Est GFR (Non-Af Amer) BUN/Creatinine Ratio Glucose POC Glucose (mg/dL) 186 H Calcium Assess/Plan/Problems-Billing Assessment: - Patient Problems (1) Status post left knee replacement Comment: - POD1 - Management per ortho (2) COPD (chronic obstructive pulmonary disease) Comment: - Cont nebulizers which I have switched to scheduled while awake - Encourage incentive spirometer - Due to patient needing supplemental O2 to maintain saturation, I have ordered a chest xray for further evaluation. Patient may benefit from steriods. (3) HTN (hypertension) Comment: - Currently on Norvasc - Normotensive and occasionally hypertensive - Cozaar held yesterday in post op period. - May resume Cozaar - Cont Metoprolol - Monitor BP routinely (4) Diabetes Comment: - Cont to hold Glipizide and Metformin - Cont sliding scale lispro (5) Depression Comment: - Cont medications as same from home - Provide supportive care (6) Hyperlipidemia Comment: - Cont statin (7) History of Richards's esophagus Comment: - Cont PPI (8) DVT prophylaxis Comment: - Per ortho - Utequis (9) Full code status Comment: - Full Code Attending: Gill Botello
[2018-11-15] MEDS ORDERED: Albuterol 2.5 MG/3 ML NEB.SOL* (0.083%) INH SCH (18:00)
[2018-11-15] MEDS: Albuterol 2.5 MG/3 ML NEB.SOL* (0.083%) INH SCH ×2 (19:53→23:20)
[2018-11-15] MEDS: CMCS:Pravastatin (NF) 20 MG TAB PO SCH (21:10)
[2018-11-15] MEDS: Pramipexole TAB* 0.125 MG PO SCH (21:11)
[2018-11-16] MEDS: Albuterol 2.5 MG/3 ML NEB.SOL* (0.083%) INH SCH ×2 (01:20→06:29)
[2018-11-16] MEDS: oxyCODONE TAB* 5 MG TAB PO PRN ×2 (02:32→10:08)
[2018-11-16] MEDS: oxyCODONE/Acetamin 5/325 MG* TAB PO PRN ×2 (05:49→17:25)
[2018-11-16] MEDS: Acetaminophen TAB* 325 MG PO SCH ×2 (05:50→15:55)
[2018-11-16 05:51] LABS: Hematocrit 32 % (35-47); Hemoglobin 10.9 g/dl (12.0-16.0); Mean Platelet Volume 8.3 fL (7.4-10.4); Platelet Count 222 10^3/ul (150-450)
[2018-11-16 06:00] LABS: INR 1.14 (0.77-1.02)
--- NOTE | 2018-11-16 07:32 | PN ---
Progress Note - Progress Note Date of Service: 11/16/18 SOAP: Subjective: Pt. is alert, pain is well controlled. Objective: Vital Signs: Temp Pulse Resp BP Pulse Ox 99.7 F 92 16 166/71 98 11/16/18 00:12 11/16/18 06:30 11/16/18 06:30 11/16/18 00:12 11/16/18 06:30 Laboratory Results - last 24 hr 11/15/18 11/15/18 11/15/18 07:24 11:53 17:04 Hgb Hct Plt Count MPV INR (Anticoag Therapy) Sodium POC Glucose (mg/dL) 193 H 196 H 186 H 11/16/18 11/16/18 11/16/18 05:26 05:26 05:26 Hgb 10.9 L Hct 32 L Plt Count 222 MPV 8.3 INR (Anticoag Therapy) 1.14 H Sodium 135 POC Glucose (mg/dL) LLE - dressing changed, inc c/d/i. distally nvi. Assessment: 67 yo F pod 2 s/p LTKA Plan: wbat pt/ot plan d/c to home today with vns
[2018-11-16] MEDS: Insulin LISPRO* 1 UNITS UNIT SUBCUT SCH ×3 (09:51→17:25)
[2018-11-16] MEDS: Docusate CAP* 100 MG PO SCH (09:52)
[2018-11-16] MEDS: Citalopram TAB* 40 MG PO SCH (09:52)
[2018-11-16] MEDS: Magnesium Hydroxide LIQ* 30 ML UDC PO SCH (09:52)
[2018-11-16] MEDS: Apixaban* 2.5 MG TAB PO SCH (09:52)
[2018-11-16] MEDS: Potassium Chlor TAB* 10 MEQ TAB.ER PO SCH (09:52)
[2018-11-16] MEDS: amLODIPine TAB* 5 MG PO SCH (09:52)
[2018-11-16] MEDS: buPROPion SR TAB.SR* 100 MG PO SCH (09:52)
[2018-11-16] MEDS: Pantoprazole TAB * 40 MG TAB PO SCH (09:53)
[2018-11-16] MEDS: Metoprolol Succinate XL TAB* 50 MG PO SCH (09:53)
[2018-11-16] MEDS ORDERED: Albuterol 2.5 MG/3 ML NEB.SOL* (0.083%) INH PRN (11:13)
[2018-11-16 11:40] VITALS: BP 126/58
--- NOTE | 2018-11-16 17:53 | PN ---
Subjective Date of Service: 11/16/18 Interval History: Sitting in bed on assessment. Reports pain in knee is controlled. Reports breathing has improved. Reports she does not feel she needs prednisone or abx as she has in the past. She reports she knows when she needs further treatment. Denies chest pain, palpitations, sob, nausea, vomiting, dizziness, fever, chills Objective Active Medications: Acetaminophen (Tylenol Tab*) 975 mg PO Q8HR [facility] Last Admin: 11/16/18 15:55 Dose: 975 mg Albuterol (Ventolin 2.5 Mg/3 Ml Neb.Davina*) 2.5 mg INH [id number] AWAKE PRN PRN Reason: SOB/WHEEZING Amlodipine Besylate (Norvasc Tab*) 5 mg PO QAM [facility] Last Admin: 11/16/18 09:52 Dose: 5 mg Apixaban (Eliquis*) 2.5 mg PO BID [facility] Last Admin: 11/16/18 09:52 Dose: 2.5 mg Bisacodyl (Dulcolax Supp*) 10 mg OH DAILY PRN PRN Reason: constipation Bupropion HCl (Wellbutrin Sr Tab*) 100 mg PO QAM [facility] Last Admin: 11/16/18 09:52 Dose: 100 mg Citalopram Hydrobromide (Celexa Tab*) 40 mg PO QAM [facility] Last Admin: 11/16/18 09:52 Dose: 40 mg Cyclobenzaprine HCl (Flexeril Tab*) 10 mg PO TID PRN PRN Reason: SPASMS Dextrose (D50w Syringe 50 Ml*) 12.5 gm IV PUSH .FOR FS < 60 - SS PRN PRN Reason: FS < 60 Diphenhydramine HCl (Benadryl Iv*) 12.5 mg IV Q6H PRN PRN Reason: PRURITIS Diphenhydramine HCl (Benadryl Po*) 25 mg PO Q6H PRN PRN Reason: ITCHINESS Docusate Sodium (Colace Cap*) 100 mg PO BID [facility] Last Admin: 11/16/18 09:52 Dose: 100 mg Lactated Ringer's (Lactated Ringers 1000 Ml Bag*) 1,000 mls @ 100 mls/hr IV PER RATE [facility] Last Admin: 11/15/18 03:25 Dose: 100 mls/hr Insulin Human Lispro (Humalog*) 0 units SUBCUT AC [facility]; Protocol Last Admin: 11/16/18 17:25 Dose: Not Given Lactulose (Lactulose*) 30 ml PO Q6H PRN PRN Reason: constipation Magnesium Hydroxide (Milk Of Magnesia Liq*) 30 ml PO BID [facility] Last Admin: 11/16/18 09:52 Dose: 30 ml Magnesium Hydroxide (Milk Of Magnesia Liq*) 30 ml PO Q6H PRN PRN Reason: constipation Metoprolol Succinate (Toprol Xl Tab*) 50 mg PO QAM [facility] Last Admin: 11/16/18 09:53 Dose: 50 mg Morphine Sulfate (Morphine Vial*) 2 mg IV Q2H PRN PRN Reason: PAIN Ondansetron HCl (Zofran Inj*) 4 mg IV Q6H PRN PRN Reason: nausea Ondansetron HCl (Zofran Tab*) 4 mg PO Q6H PRN PRN Reason: NAUSEA Last Admin: 11/16/18 17:26 Dose: 4 mg Oxycodone HCl (Roxycodone Tab*) 10 mg PO Q4H PRN PRN Reason: SEVERE PAIN Last Admin: 11/16/18 10:08 Dose: 10 mg Oxycodone/Acetaminophen (Percocet 5/325 Tab*) 1 tab PO Q4H PRN PRN Reason: PAIN Oxycodone/Acetaminophen (Percocet 5/325 Tab*) 2 tab PO Q4H PRN PRN Reason: PAIN Last Admin: 11/16/18 17:25 Dose: 2 tab Pantoprazole Sodium (Protonix Tab*) 40 mg PO BID [facility] Last Admin: 11/16/18 09:53 Dose: 40 mg Polyethylene Glycol/Electrolytes (Miralax*) 17 gm PO DAILY PRN PRN Reason: Constipation Potassium Chloride (Klor Con Er Tab*) 10 meq PO QAM [facility] Last Admin: 11/16/18 09:52 Dose: 10 meq Pramipexole Dihydrochloride (Mirapex Tab*) 0.125 mg PO BEDTIME [facility] Last Admin: 11/15/18 21:11 Dose: 0.125 mg Pravastatin Sodium (Pravachol (Nf)) 20 mg PO BEDTIME [facility]; Protocol Last Admin: 11/15/18 21:10 Dose: 20 mg Tramadol HCl (Ultram*) 50 mg PO Q6H PRN PRN Reason: PAIN Last Admin: 11/15/18 05:50 Dose: 50 mg Vital Signs - 8 hr 11/16/18 11/16/18 11/16/18 10:08 11:31 12:29 Temperature 98.4 F Pulse Rate 90 Respiratory 18 16 16 Rate Blood Pressure 126/58 (mmHg) O2 Sat by Pulse 90 Oximetry 11/16/18 17:25 Temperature Pulse Rate Respiratory 18 Rate Blood Pressure (mmHg) O2 Sat by Pulse Oximetry Oxygen Devices in Use Now: Nasal Cannula Appearance: NAD Eyes: No Scleral Icterus Ears/Nose/Mouth/Throat: Clear Oropharnyx, Mucous Membranes Moist Neck: NL Appearance and Movements; NL JVP Respiratory: Symmetrical Chest Expansion and Respiratory Effort, Clear to Auscultation Cardiovascular: NL Sounds; No Murmurs; No JVD, No Edema Abdominal: NL Sounds; No Tenderness; No Distention Lymphatic: No Cervical Adenopathy Extremities: No Edema Skin: No Rash or Ulcers Neurological: Alert and Oriented x 3 Nutrition: Taking PO's Result Diagrams: 11/16/18 05:26 11/16/18 05:26 Additional Lab and Data: Laboratory Results - last 24 hr 11/16/18 11/16/18 11/16/18 05:26 05:26 05:26 Hgb 10.9 L Hct 32 L Plt Count 222 MPV 8.3 INR (Anticoag Therapy) 1.14 H Sodium 135 POC Glucose (mg/dL) 11/16/18 11/16/18 08:27 12:28 Hgb Hct Plt Count MPV INR (Anticoag Therapy) Sodium POC Glucose (mg/dL) 205 H 164 H Assess/Plan/Problems-Billing Assessment: - Patient Problems (1) Status post left knee replacement Comment: - POd 2 - Management per ortho (2) COPD (chronic obstructive pulmonary disease) Comment: - Patient needs to be weaned from oxygen before discharge to make sure she can maintain her saturation on room air - I have instructed patient to cont nebs at home and follow up with pcp (3) HTN (hypertension) Comment: - May resume home medication (4) Diabetes Comment: - Resume home Glipizide and Metformin upon discharge (5) Depression Comment: - Cont medications as same from home - Provide supportive care (6) Hyperlipidemia Comment: - Cont statin (7) History of Richards's esophagus Comment: - Cont PPI (8) DVT prophylaxis Comment: - Per ortho - Eliquis (9) Full code status Comment: - Full Code Attending: Gill Botello
--- NOTE | 2018-11-16 21:46 | DS ---
DISCHARGE SUMMARY: DATE OF ADMISSION: 11/14/18 DATE OF DISCHARGE: 11/16/18 ATTENDING PHYSICIAN: Dr. Karyn Harrell.* (DICTATED B DANDRE KRUGER) ADMISSION DIAGNOSIS: Severe end-stage degenerative osteoarthritis, left knee. DISCHARGE DIAGNOSIS: Severe end-stage degenerative osteoarthritis, left knee. SURGERY PERFORMED: Left total knee arthroplasty. HOSPITAL COURSE: The patient is a 67-year-old female, who had suffered with years of increasingly severe left knee pain. Her plain films revealed end- stage bone-on- bone degenerative arthritis. She failed conservative management with antiinflammatories, pain medications, physical therapy, and intraarticular cortisone injections. Due to her continued pain and decreased quality of life, she elected to proceed with total knee arthroplasty. She was taken to the operating room under the care of Dr. Karyn Harrell for the aforementioned procedure on 11/14/18. She tolerated the procedure well and left the operating room in stable condition. Postoperatively, she progressed satisfactorily with physical therapy and occupational therapy goals. Other than needing to wean off oxygen postop day #1 due to her baseline COPD, she had no postoperative complications. It was felt that she was medically and orthopedically stable for discharge to home on 11/16/18. CONDITION ON DISCHARGE: Her temperature was 98.4, her pulse was 90, respiratory rate 16, O2 sat 90% on room air, blood pressure 126/58. Her left knee incision is healing without evidence of infection. Her calf remained soft and nontender. She has active dorsiflexion of her left ankle. Her circulation and sensation are intact distally. PLAN: Discharge to home with visiting nursing services in place. Prescriptions of Percocet 5/325 one p.o. q.4 hours p.r.n. pain, #42, with MDD of 6 as well as Eliquis 2.5 mg p.o. b.i.d. for DVT prophylaxis for 30 days have been ordered through [id number] [place] [facility] [place] will follow up in the office as scheduled with Dr. Harrell in roughly 10 to 14 days. All questions were answered. DANDRE KRUGER [id number]/[facility] #: [id number] [facility]
== END 2018-11-16 17:45 | disposition home health service (06) | DRG 470 ==
LOC: AA 09:22 → SSU 16:57
PROVIDERS: ADMIT Orthopaedic Surgery Adult Reconstructive Orthopaedic Surgery; ATTEND Orthopaedic Surgery Adult Reconstructive Orthopaedic Surgery
PROC: 0SRD069 Replacement of Left Knee Joint with Oxidized Zirconium on Polyethylene Synthetic Substitute, Cemented, Open Approach (ICD-10-PCS; principal; 2018-11-14 11:00)
DX: M17.12 Unilateral primary osteoarthritis, left knee (principal); J44.9 Chronic obstructive pulmonary disease, unspecified; I10 Essential (primary) hypertension; F32.9 Major depressive disorder, single episode, unspecified; E78.5 Hyperlipidemia, unspecified; K21.9 Gastro-esophageal reflux disease without esophagitis; K22.70 Barrett's esophagus without dysplasia; F17.210 Nicotine dependence, cigarettes, uncomplicated; M25.462 Effusion, left knee; E11.40 Type 2 diabetes mellitus with diabetic neuropathy, unspecified; E66.01 Morbid (severe) obesity due to excess calories; M25.762 Osteophyte, left knee; G43.909 Migraine, unspecified, not intractable, without status migrainosus; K64.9 Unspecified hemorrhoids; N60.19 Diffuse cystic mastopathy of unspecified breast; Z98.51 Tubal ligation status; Z85.3 Personal history of malignant neoplasm of breast; Z90.710 Acquired absence of both cervix and uterus; Z90.89 Acquired absence of other organs; Z88.8 Allergy status to other drugs, medicaments and biological substances; Z83.3 Family history of diabetes mellitus; Z82.49 Family history of ischemic heart disease and other diseases of the circulatory system; Z82.3 Family history of stroke; Z80.0 Family history of malignant neoplasm of digestive organs; Z99.81 Dependence on supplemental oxygen; Z68.34 Body mass index [BMI] 34.0-34.9, adult
CPT/HCPCS: 36415; 71045; 80048; 84300; 85014; 85018; 85049; 85610; 88305; 88311; 94640; A9270-GY; C1776; G8978-GP-CJ; G8979-GP-CI; G8987-GO-CK; G8988-GO-CI; J0171; J0690; J1100; J1170; J1885; J2250; J2405; J2704; J2710; J2765; J2795; J3010